=== PATIENT | female | born 1955 | race Caucasian/White ===

== ENCOUNTER 2022-04-10 08:16 | Outpatient (CLI) | payer BC | END 2022-04-10 08:17 | disposition home or self-care (01) | LOC: CSHMAMMO 08:16 | PROVIDERS: ATTEND Family Medicine | DX: Z12.31 Encounter for screening mammogram for malignant neoplasm of breast (principal); Z80.3 Family history of malignant neoplasm of breast | CPT/HCPCS: 77063; 77067 ==

== ENCOUNTER 2023-09-10 11:59 | Outpatient (CLI) | payer MEDICARE | END 2023-09-10 12:00 | disposition home or self-care (01) | LOC: CSHMAMMO 11:59 | PROVIDERS: ATTEND Student in an Organized Health Care Education/Training Program | DX: Z12.31 Encounter for screening mammogram for malignant neoplasm of breast (principal); Z80.3 Family history of malignant neoplasm of breast | CPT/HCPCS: 77063; 77067 ==

== ENCOUNTER 2024-09-22 10:59 | Outpatient (CLI) | payer MEDICARE | END 2024-09-22 11:00 | disposition home or self-care (01) | LOC: CSHMAMMO 10:59 | PROVIDERS: ATTEND Family Medicine | DX: Z12.31 Encounter for screening mammogram for malignant neoplasm of breast (principal); Z80.3 Family history of malignant neoplasm of breast | CPT/HCPCS: 77063; 77067 ==